=== PATIENT | male | born 1955 | race Caucasian/White ===

== ENCOUNTER 2016-03-11 08:39 | Emergency (ER) | payer BC ==
[2016-03-11 09:03] VITALS: BP 143/87
[2016-03-11] MEDS ORDERED: Albuterol/Ipratropium NEB.SOL* Albuterol 2.5 MG/Ipratropium 0.5 MG 3 ML INH ONE (09:29)
--- NOTE | 2016-03-11 09:33 | UC ---
Respiratory Complaint HPI - HPI Summary HPI Summary: sinus congestion a few weeks ago, seemed to resolve, then started coughing 2d ago. Can't lie flat due to SOB and wheezing, had to sit up in chair past 2 nights. No fever. No vomiting. Nonsmoker (quit 10 yrs ago), no history of asthma. Able to eat and drink. No ST or earache. No sinus congestion now. - History of Current Complaint Chief Complaint: UCRespiratory Stated Complaint: COUGH,HEAVY CHEST Time Seen by Provider: 03/11/16 09:24 Hx Obtained From: Patient Onset/Duration: Gradual Onset, Lasting Days - 2 Timing: Constant Severity Initially: Mild Severity Currently: Moderate Character: Cough: Nonproductive Aggravating Factors: Exertion, Recumbent Position Alleviating Factors: Nothing Associated Signs And Symptoms: Positive: Dyspnea, Wheezing, URI, Hoarseness. Negative: Chills, Pleuritic Chest Pain, Hemoptysis, Dizziness, Nasal Congestion - Risk Factors Pulmonary Embolism Risk Factors: Negative Cardiac Risk Factors: Negative Pseudomonas Risk Factors: Negative Tuberculosis Risk Factors: Negative - Allergies/Home Medications Allergies/Adverse Reactions: Allergies Allergy/AdvReac Type Severity Reaction Status Date / Time No Known Allergies Allergy Verified 03/11/16 08:55 Home Medications: Home Medications Acetaminophen W/ Dm [Daytime Cold Medicine] 1 liq PO BID PRN 03/11/16 [History Confirmed 03/11/16] PMH/Surg Hx/FS Hx/Imm Hx Endocrine History Of: Reports: Thyroid Disease - HYPOTHYROID Cardiovascular History Of: Reports: Hypertension Respiratory History Of: Reports: Asthma - OCCASIONALLY WITH EXERTION, & R/T ENVIRONMENTAL ALLERGIES - Surgical History Surgical History: Yes Surgery Procedure, Year, and Place: APPENDECTOMY 25 YRS AGO [place] - Family History Known Family History: Positive: Hypertension - Social History Occupation: Employed Full-time Lives: With Family Alcohol Use: Daily Alcohol Amount: 1 DRINK/DAY- beer or wine or high ball Substance Use Type: None Smoking Status (MU): Former Smoker Type: Cigarettes Amount Used/How Often: 1 PPD FOR 10 YRS Length of Time of Smoking/Using Tobacco: 10 YRS Have You Smoked in the Last Year: No When Did the Patient Quit Smoking/Using Tobacco: 10 YRS AGO - Immunization History Most Recent Influenza Vaccination: not this season Review of Systems Constitutional: Chills, Fatigue Skin: Negative Eyes: Negative ENT: Negative Respiratory: Shortness Of Breath, Cough Cardiovascular: Negative Gastrointestinal: Negative Genitourinary: Negative Motor: Negative Neurovascular: Negative Musculoskeletal: Negative Neurological: Negative Psychological: Negative All Other Systems Reviewed And Are Negative: Yes Physical Exam Triage Information Reviewed: Yes Appearance: Well-Appearing, No Pain Distress, Well-Nourished Vital Signs: Initial Vital Signs Temp 97.9 F 03/11/16 08:57 Pulse 76 03/11/16 08:57 Resp 20 03/11/16 08:57 BP 143/87 03/11/16 08:57 Pulse Ox 96 03/11/16 08:57 Vital Signs Reviewed: Yes Eye Exam: Normal Eyes: Positive: Conjunctiva Clear ENT: Positive: Hearing grossly normal, Pharynx normal, TMs normal, Muffled/ hoarse voice - hoarse Neck exam: Normal Neck: Positive: Supple, Nontender Respiratory: Positive: No respiratory distress, No accessory muscle use, Wheezing - expiratory, lower lung nobles Cardiovascular Exam: Normal Musculoskeletal Exam: Normal Neurological Exam: Normal Psychological Exam: Normal Skin Exam: Normal UC Diagnostic Evaluation - Laboratory O2 Sat by Pulse Oximetry: 96 Re-Evaluation - Re-Evaluation First Eval Re-Evaluation Time: 10:15 Change: Improved Comment: no wheezing. He feels better Respiratory Course/Dx - Differential Dx/Diagnosis Differential Diagnosis/HQI/PQRI: Bronchitis, Lower Resp Infection, Sinusitis Provider Diagnoses: URI with bronchospasm Discharge - Discharge Plan Condition: Stable Disposition: HOME Prescriptions: Albuterol HFA INHALER* [Ventolin HFA Inhaler*] 1 - 2 puff INH Q4H PRN #1 mdi PRN Reason: cough, wheezing Hydrocodone Polistirex-Chlorph [Tussionex Pennkinetic Ext 10-8 mg/5Ml] 1 teasp PO BID PRN #60 ml MDD 10cc PRN Reason: Cough Patient Education Materials: Upper Respiratory Infection (ED), Bronchospasm (ED ) Referrals: Reymundo Gibson DO [Primary Care Provider] -
== END 2016-03-11 10:21 | disposition home or self-care (01) ==
LOC: UCCORT 08:39
DX: J06.9 Acute upper respiratory infection, unspecified (principal); J98.01 Acute bronchospasm; Z87.891 Personal history of nicotine dependence
CPT/HCPCS: 99212; A9270-GY; G0463